=== PATIENT | female | born 2000 | race Caucasian/White ===

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

== ENCOUNTER 2019-01-11 09:26 | Emergency (ER) | payer MEDICAID ==
[2019-01-11 09:40] VITALS: BP 105/73
--- NOTE | 2019-01-11 10:06 | UC ---
Throat Pain/Nasal Royer HPI - HPI Summary HPI Summary: 18 -year-old female with a sore throat over the past 2 days. She also states she has a small rash to the inner canthus of her right eye which in the past has been herpes and she requests a prescription for that. - History of Current Complaint Chief Complaint: UCGeneralIllness Stated Complaint: SORE THROAT Time Seen by Provider: 01/11/19 10:05 Hx Obtained From: Patient Hx Last Menstrual Period: now ?: No Onset/Duration: Gradual Onset Severity: Mild Pain Intensity: 8 Cough: None Associated Signs & Symptoms: Positive: Negative Related History: Seasonal Allergies - Epiglottits Risk Factors Epiglottis Risk Factors: Negative - Allergies/Home Medications Allergies/Adverse Reactions: Allergies Allergy/AdvReac Type Severity Reaction Status Date / Time amoxicillin Allergy Hives Verified 01/11/19 09:40 clavulanic acid Allergy Hives Verified 01/11/19 09:40 Penicillins Allergy Hives Verified 01/11/19 09:40 PMH/Surg Hx/FS Hx/Imm Hx Previously Healthy: Yes - Surgical History Surgical History: Yes Surgery Procedure, Year, and Place: pyloric stenosis surgery as an , appendectomy - Family History Known Family History: Positive: Hypertension Negative: Cardiac Disease, Diabetes - Social History Alcohol Use: None Substance Use Type: None Smoking Status (MU): Heavy Every Day Tobacco Smoker Type: Cigarettes Amount Used/How Often: 1 PPD Have You Smoked in the Last Year: Yes - stopped in Household Exposure Type: Cigarettes - Immunization History Most Recent Influenza Vaccination: Declined Most Recent Pneumonia Vaccination: none Vaccination Up to Date: Yes Review of Systems All Other Systems Reviewed And Are Negative: Yes Skin: Positive: Rash - Small red rash at the inner canthus of the right eye which patient states is usually herpes simplex. Eyes: Positive: Other - Itchy eyes over the past few days. ENT: Positive: Sore Throat - Pt defines sore throat as being scratchy, Nasal Discharge - Occasional runny nose. Is Patient Immunocompromised?: No Physical Exam Triage Information Reviewed: Yes Appearance: Well-Appearing, No Pain Distress, Well-Nourished Vital Signs: Initial Vital Signs Temp 98.4 F 01/11/19 09:35 Pulse 91 01/11/19 09:35 Resp 18 01/11/19 09:35 BP 105/73 01/11/19 09:35 Pulse Ox 98 01/11/19 09:35 Vital Signs Reviewed: Yes Eye Exam: Normal ENT: Positive: Pharyngeal erythema - Mild erythema posterior pharynx and tonsils. Neck: Positive: Supple, Nontender, No Lymphadenopathy Respiratory: Positive: Lungs clear, Normal breath sounds, No respiratory distress, No accessory muscle use Cardiovascular: Positive: RRR, No Murmur, Pulses Normal, Brisk Capillary Refill Musculoskeletal Exam: Normal Neurological Exam: Normal Psychological Exam: Normal Skin: Positive: Rashes - Patient has a small red mildly elevated rash to the inner canthus of her right eye. There are no visible herpetic lesions at this time. It measures approximately 3 mm x 2 mm. Throat Pain/Nasal Course/Dx - Course Course Of Treatment: Patient has been comfortable here. She is experiencing more an allergic response I believe since the strep test was negative. I am also going to treat her for the rash at the inner canthus of her eye. She states in the past she has had a culture done and it was positive for herpes. Follow-up with her primary care provider as needed. - Differential Dx/Diagnosis Provider Diagnosis: Pharyngitis, Rash and nonspecific skin eruption Discharge - Sign-Out/Discharge Documenting (check all that apply): Patient Departure All imaging exams completed and their final reports reviewed: No Studies - Discharge Plan Condition: Fair Disposition: HOME Prescriptions: ValACYclovir (*) [Valtrex 1 GM(*)] 1 gm PO DAILY 5 Days #5 tab Patient Education Materials: Pharyngitis (ED), Oral Herpes Simplex Virus Infections (ED) Referrals: No Primary Care Phys,NOPCP [Primary Care Provider] - Care [facility] [Outside] - Billing Disposition and Condition Condition: FAIR Disposition: Home
== END 2019-01-11 10:51 | disposition home or self-care (01) ==
LOC: UCEAST 09:26
DX: J02.9 Acute pharyngitis, unspecified (principal); R21 Rash and other nonspecific skin eruption; Z88.1 Allergy status to other antibiotic agents; Z88.0 Allergy status to penicillin; F17.210 Nicotine dependence, cigarettes, uncomplicated
CPT/HCPCS: 87651; 99212; G0463

== ENCOUNTER 2019-03-07 16:39 | Emergency (ER) | payer MEDICAID ==
[2019-03-07 16:50] VITALS: BP 116/57
--- NOTE | 2019-03-07 17:10 | UC ---
Abdominal Pain Female HPI - HPI Summary HPI Summary: 18-year-old female comes in with a chief complaint of she can't find her IUD strings. One month ago the patient had an IUD placed RACHNA. She had for 5 days of vaginal spotting and then she started bleeding more heavily. Last 3 days she reports using a tampon every few hours 3-4 hours. She does feel little bit lightheaded. She is continuing to have suprapubic cramping. No fevers or chills no concern of STI feels well otherwise. - History of Current Complaint Chief Complaint: UCGU Stated Complaint: ABDOMINAL COMPLAINT Time Seen by Provider: 03/07/19 16:51 Hx Last Menstrual Period: now Pain Intensity: 5 Allergies/Adverse Reactions: Allergies Allergy/AdvReac Type Severity Reaction Status Date / Time amoxicillin Allergy Hives Verified 03/07/19 16:51 clavulanic acid Allergy Hives Verified 03/07/19 16:51 Penicillins Allergy Hives Verified 03/07/19 16:51 PMH/Surg Hx/FS Hx/Imm Hx Previously Healthy: Yes - Surgical History Surgical History: Yes Surgery Procedure, Year, and Place: pyloric stenosis surgery as an , appendectomy - Family History Known Family History: Positive: Hypertension Negative: Cardiac Disease, Diabetes - Social History Alcohol Use: None Substance Use Type: Marijuana Substance Use Comment - Amount & Last Used: daily Smoking Status (MU): Heavy Every Day Tobacco Smoker Type: Cigarettes Amount Used/How Often: 1 PPD Have You Smoked in the Last Year: Yes - stopped in Household Exposure Type: Cigarettes - Immunization History Most Recent Influenza Vaccination: Declined Most Recent Pneumonia Vaccination: none Vaccination Up to Date: Yes Review of Systems All Other Systems Reviewed And Are Negative: Yes Constitutional: Positive: Other - LIGHTHEADED Skin: Positive: Negative Eyes: Positive: Negative ENT: Positive: Negative Respiratory: Positive: Negative Cardiovascular: Positive: Negative Gastrointestinal: Positive: Abdominal Pain Genitourinary: Positive: Other - SEE HPI. Negative: Dysuria Motor: Positive: Negative Neurovascular: Positive: Negative Musculoskeletal: Positive: Negative Neurological: Positive: Negative Psychological: Positive: Negative Is Patient Immunocompromised?: No Physical Exam Triage Information Reviewed: Yes Appearance: Well-Appearing, No Pain Distress, Well-Nourished Vital Signs: Initial Vital Signs Temp 99.8 F 03/07/19 16:45 Pulse 93 03/07/19 16:45 Resp 16 03/07/19 16:45 BP 116/57 03/07/19 16:45 Pulse Ox 97 03/07/19 16:45 Vital Signs Reviewed: Yes Eye Exam: Normal Eyes: Positive: Conjunctiva Clear ENT: Positive: Other - ORAL MUCOSA MOIST Neck: Positive: Supple Respiratory: Positive: Lungs clear, Normal breath sounds, No respiratory distress Cardiovascular: Positive: RRR Abdomen Description: Positive: Soft, Other: - MILD TENDERNESS TO PALPATION LOWER ABDOMEN. Negative: CVA Tenderness (R), CVA Tenderness (L) Musculoskeletal Exam: Normal Musculoskeletal: Positive: Strength Intact, ROM Intact Neurological Exam: Normal Neurological: Positive: Alert, Muscle Tone Normal Psychological Exam: Normal Psychological: Positive: Normal Response To Family, Age Appropriate Behavior Skin Exam: Normal Abd Pain Female Course/Dx - Course Course Of Treatment: Patient Name: VIDYA MARQUEZ Medical Record#: [id number] Ordering Physician: Andrea Sandoval MD Acct.#: [id number] : 2000 Age: 18 Sex: F Location: [facility] Exam Date: 03/07/191702 ADM Status: REG ER Order Information: US TRANSVAGINAL Accession Number: [id number] CPT: 48918 INDICATION: Vaginal bleeding and cramping x1 month. COMPARISON: None. TECHNIQUE: Real-time transabdominal and transvaginal ultrasound examination of the female pelvis including grayscale and Doppler color flow imaging. FINDINGS: Uterus: The uterus is normal in size and echogenicity measuring 8.9 x 4.5 x 4.8 cm. The endometrial stripe is smooth and uniform measuring 5 mm in thickness. The intrauterine device appears to be appropriately positioned at the fundal height endometrium. Ovaries: The right and left ovary measure 5.2 x 2.7 x 3.5 cm and 2.9 x 2.0 x 1.6 cm, respectively. Normal arterial and venous waveforms are identified. Within the right ovary there is an anechoic and avascular structure measuring 3.7 x 3.0 x 3.3 cm consistent with a dominant follicle. There is no free fluid in the cul-de-sac. IMPRESSION: 1. Normal and age-appropriate pelvic ultrasound. 2. The intrauterine device appears to be appropriately positioned at the fundal height endometrium. <Electronically signed by Max Beebe MD in OV> 03/07/19 1850 I discussed the ultrasound and urine results with the patient. IUD appears in place there is no portion there is a simple ovarian cyst on the right. is negative. Plan right now so the patient follow[facility] with [facility] get reevaluated sooner if worse or any questions or concerns. - Differential Dx/Diagnosis Provider Diagnosis: Vaginal bleeding problems, Pelvic pain, Ovarian cyst Discharge - Sign-Out/Discharge Documenting (check all that apply): Patient Departure All imaging exams completed and their final reports reviewed: Yes - Discharge Plan Condition: Stable Disposition: HOME Patient Education Materials: Dysfunctional Uterine Bleeding (ED), Ovarian Cyst (ED), Intrauterine Device (DC), Pelvic Pain in Women (ED) [facility] Additional Instructions: FOLLOW UP WITH [facility]. The will ultrasound showed the IUD in place. No sign of ovarian torsion. And a right ovarian simple cyst measuring 3.7 x 3 x 3.3 cm. GET RECHECKED SOONER IF YOUR CONDITION WORSENS; PAIN, FEVER, YOU FEEL ILL, YOU FEEL LIKE PASSING OUT OR ANY QUESTIONS OR CONCERNS. - Billing Disposition and Condition Condition: STABLE Disposition: Home
== END 2019-03-07 18:43 | disposition home or self-care (01) ==
LOC: UCEAST 16:39
DX: N92.6 Irregular menstruation, unspecified (principal); R10.2 Pelvic and perineal pain; N83.201 Unspecified ovarian cyst, right side; F17.210 Nicotine dependence, cigarettes, uncomplicated; Z88.0 Allergy status to penicillin; Z97.5 Presence of (intrauterine) contraceptive device
CPT/HCPCS: 76830; 81003; 84702; 87086; 99211; G0463

== ENCOUNTER 2019-04-09 19:08 | Emergency (ER) | payer MEDICAID ==
[2019-04-09 20:22] LABS: Urine Appearance Cloudy; Urine Bacteria Absent (Absent); Urine Bilirubin Negative (Negative); Urine Blood 3+ (Negative); Urine Color Yellow; Urine Glucose Negative (Negative); Urine Ketones Negative (Negative); Urine Nitrite Negative (Negative); Urine Protein Negative (Negative); Urine Red Blood Cell 2+(6-10/hpf) (Absent); Urine Squamous Epithelial Cell Present (Absent); Urine Urobilinogen Negative (Negative); Urine White Blood Cell Trace(0-5/hpf) (Absent)
--- NOTE | 2019-04-09 20:27 | ED ---
Psychiatric Complaint - HPI Summary HPI Summary: This patient is a 18 year old F presenting to [facility] accompanied by her grandmother with a chief complaint of suicidal ideation. Patient states that she has been dealing with this on and off for her whole life. She has been taking her medication for suicidal ideation on and off because she feels she does not need them to feel better. Symptoms aggravated by nothing. Symptoms alleviated by nothing. Patient reports being depressed. Patient denies plan at this time. She notes she lives with her mother. - History Of Current Complaint Chief Complaint: EDSuicidal Time Seen by Provider: 04/09/19 19:45 Hx Obtained From: Patient Hx Last Menstrual Period: now Onset/Duration: Other - has been dealing with suicidal ideation on and off for her whole life Character: Depressed Aggravating Factor(s): Nothing Alleviating Factor(s): Nothing Has Suicidal: Reports: Thoughts - Allergies/Home Medications Allergies/Adverse Reactions: Allergies Allergy/AdvReac Type Severity Reaction Status Date / Time amoxicillin Allergy Hives Verified 04/09/19 19:11 clavulanic acid Allergy Hives Verified 04/09/19 19:11 Penicillins Allergy Hives Verified 04/09/19 19:11 Home Medications: Home Medications NK [No Home Medications Reported] 04/09/19 [History Confirmed 04/09/19] PMH/Surg Hx/FS Hx/Imm Hx Previously Healthy: No Endocrine/Hematology History: Denies: Hx Diabetes, Hx Thyroid Disease Cardiovascular History: Denies: Hx Hypertension Respiratory History: Denies: Hx Asthma, Hx Chronic Obstructive Pulmonary Disease (COPD) GI History: 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 Denies: Hx Ulcer History: Denies: Hx Renal Disease Psychiatric History: Reports: Hx Anxiety - on lexapro, Hx Depression, Hx Community Mental Health Tx Denies: Hx Attention Deficit Hyperactivity Disorder, Hx Eating Disorder, Hx Panic Disorder, Hx Post Traumatic Stress Disorder, Hx Inpatient Treatment, Hx Schizophrenia, Hx Bipolar Disorder, Hx Suicide Attempt, Hx of Violent Episodes Against Others, Hx Substance Abuse, Other Psychiatric Issues/Disorders - Surgical History Surgical History: Yes Surgery Procedure, Year, and Place: pyloric stenosis surgery as an infant, appendectomy Infectious Disease History: No Infectious Disease History: Denies: Hx Clostridium Difficile, Hx Hepatitis, Hx Human Immunodeficiency Virus (HIV), Hx of Known/Suspected MRSA, Hx Shingles, Hx Tuberculosis, Hx Known/ Suspected VRE, Hx Known/Suspected VRSA, History Other Infectious Disease, Traveled Outside the [place] in Last 30 Days - Family History Known Family History: Positive: Hypertension Negative: Cardiac Disease, Diabetes - Social History Alcohol Use: None Substance Use Type: Reports: Marijuana Substance Use Comment - Amount & Last Used: daily Smoking Status (MU): Heavy Every Day Tobacco Smoker Type: Cigarettes Amount Used/How Often: 1 PPD Have You Smoked in the Last Year: Yes - stopped in Review of Systems Negative: Fever Psychological: Other - positive - suicidal ideation. negative - suicidal plan at this time Positive: Depressed All Other Systems Reviewed And Are Negative: Yes Physical Exam - Summary Physical Exam Summary: VITAL SIGNS: Reviewed. GENERAL: depressed mood, patient is a well-developed and nourished FEMALE who is lying comfortable in the stretcher. Patient is not in any acute respiratory distress. HEAD AND FACE: No signs of trauma. No ecchymosis, hematomas or skull depressions. No sinus tenderness. EYES: PERRLA, EOMI x 2, No injected conjunctiva, no nystagmus. EARS: Hearing grossly intact. Ear canals and tympanic membranes are within normal limits. MOUTH: Oropharynx within normal limits. NECK: Supple, trachea is midline, no adenopathy, no JVD, no carotid bruit, no c- spine tenderness, neck with full ROM CHEST: Symmetric, no tenderness at palpation LUNGS: Clear to auscultation bilaterally. No wheezing or crackles. CVS: Regular rate and rhythm, S1 and S2 present, no murmurs or gallops appreciated. ABDOMEN: Soft, non-tender. No signs of distention. No rebound no guarding, and no masses palpated. Bowel sounds are normal. EXTREMITIES: FROM in all major joints, no edema, no cyanosis or clubbing. NEURO: Alert and oriented x 3. No acute neurological deficits. Speech is normal and follows commands. SKIN: Dry and warm Triage Information Reviewed: Yes Vital Signs On Initial Exam: Initial Vitals Temp Pulse Resp BP Pulse Ox 99.3 F 96 18 131/92 97 04/09/19 19:10 04/09/19 19:10 04/09/19 19:10 04/09/19 19:10 04/09/19 19:10 Vital Signs Reviewed: Yes Diagnostics - Vital Signs Vital Signs Temp Pulse Resp BP Pulse Ox 04/09/19 19:10 99.3 F 96 18 131/92 97 - Laboratory Result Diagrams: 04/09/19 20:37 04/09/19 20:37 Lab Statement: Any lab studies that have been ordered have been reviewed, and results considered in the medical decision making process. Course/Dx - Course Course Of Treatment: This patient is a 18 year old F presenting to [facility] accompanied by her grandmother with a chief complaint of suicidal ideation. Patient states that she has been dealing with this on and off for her whole life. She has been taking her medication for suicidal ideation on and off because she feels she does not need them to feel better. Symptoms aggravated by nothing. Symptoms alleviated by nothing. Patient reports being depressed. Patient denies plan at this time. She notes she lives with her mother. Physical exam findings show pt has depressed mood. Lab results show Urine blood 3+ A, urine RBC 2+ A, Ir squamous epith cells present A, U cannabinoids screen presumptive positive A. During the ED course, the pt was given a mental health evaluation. At 2303, [facility] notifies Dr. Poon that Dr. Lowery, psychiatry, says pt will be discharged and will follow up with an outpatient clinic. Final diagnosis is mood disorder. - Differential Dx/Clinical Impression Provider Diagnosis: Mood disorder - Physician Notifications Discussed Care Of Patient With: Gwyn Lowery Time Discussed With Above Provider: 23:03 Instructed by Provider To: Other - [facility] notifies Dr. Poon that Dr. Lowery, psychiatry, says pt can be discharged and will follow up with an outpatient clinic. Discharge - Sign-Out/Discharge Patient Received Moderate/Deep Sedation with Procedure: No - Discharge Plan Condition: Stable Disposition: HOME Patient Education Materials: Mood Disorders (ED), Help Prevent Suicide (ED) Referrals: No Primary Care Phys,NOPCP [Primary Care Provider] - - Billing Disposition and Condition Condition: STABLE Disposition: Home - Attestation Statements Document Initiated by Alejandroibe: Yes Documenting Scribe: Amor White Provider For Whom Daniella is Documenting (Include Credential): Dr. Lindy Poon MD Scribe Attestation: Amor Recio scribed for Dr. Lindy Poon MD on 04/10/19 at 0613. Scribe Documentation Reviewed: Yes Provider Attestation: The documentation as recorded by the alejandroibflor, Amor White accurately reflects the service I personally performed and the decisions made by me, Dr. Lindy Poon MD Status of Daniella Document: Viewed
[2019-04-09 20:36] LABS: Urine Benzodiazepine Screen None Detected (None Detect); Urine Opiates Screen None Detected (None Detect)
[2019-04-09 20:51] LABS: ABS Eosinophils 0.3 10^3/ul (0-0.6); ABS Lymphocytes 1.8 10^3/ul (1.0-4.8); ABS Monocytes 0.5 10^3/ul (0-0.8); ABS Neutrophils 3.3 10^3/ul (1.5-7.7); Eosinophil % 5.8 %; Hematocrit 36 % (35-47); Hemoglobin 12.3 g/dL (12.0-16.0); Lymphocyte % 29.8 %; Mean Corpuscular HGB Conc 34 g/dL (31-36); Mean Corpuscular Hemoglobin 30 pg (27-31); Mean Corpuscular Volume 89 fL (80-97); Mean Platelet Volume 8.4 fL (7.4-10.4); Platelet Count 211 10^3/uL (150-450); Red Blood Count 4.08 10^6 /uL (3.70-4.87); Red Cell Distribution Width 15 % (10-15); White Blood Count 5.9 10^3/uL (3.5-10.8)
[2019-04-09 21:00] LABS: ALT 10 U/L (7-52); AST 12 U/L (13-39); Albumin 4.3 g/dL (3.2-5.2); Albumin/Globulin Ratio 1.7 (1-3); Alkaline Phosphatase 43 U/L (34-104); Anion Gap 7 mmol/L (2-11); BUN/Creatinine Ratio 18.1 (8-20); Blood Urea Nitrogen 15 mg/dL (6-24); CO2 Carbon Dioxide 22 mmol/L (22-32); Calcium 9.3 mg/dL (8.6-10.3); Chloride 111 mmol/L (101-111); EGFR African American 107.2 (>60); EGFR Non-African American 88.6 (>60); Globulin 2.6 g/dL (2-4); Glucose 91 mg/dL (70-100); Potassium 3.7 mmol/L (3.5-5.0); Sodium 140 mmol/L (135-145); Total Protein 6.9 g/dL (6.4-8.9)
[2019-04-09 21:05] LABS: HCG Pregnancy < 0.60 mIU/mL
[2019-04-09 21:19] LABS: Acetaminophen < 15 mcg/mL; Alcohol < 10 mg/dL (<10); Salicylate < 2.50 mg/dL (<30)
[2019-04-09 21:33] LABS: TSH (Thyroid Stimulating Horm) 0.38 mcIU/mL (0.34-5.60)
[2019-04-09 22:57] VITALS: BP 117/67
== END 2019-04-09 21:57 | disposition home or self-care (01) ==
LOC: ED 19:08
DX: F41.9 Anxiety disorder, unspecified (principal); F39 Unspecified mood [affective] disorder; F32.9 Major depressive disorder, single episode, unspecified; Z88.1 Allergy status to other antibiotic agents; Z88.0 Allergy status to penicillin; Z79.899 Other long term (current) drug therapy
CPT/HCPCS: 36415; 80053; 80307; 80320; 80329; 81003; 81015; 84443; 84702; 85025; 87086; 99285; G0480

== ENCOUNTER 2019-04-15 21:19 | Emergency (ER) | payer SELFPAY ==
[2019-04-15 21:43] VITALS: BP 118/82
--- NOTE | 2019-04-15 21:52 | UC ---
Throat Pain/Nasal Royer HPI - HPI Summary HPI Summary: Patient is a 18-year-old female who presents to the urgent care with chief complaint of having sore throat, fatigue, headache for the last 2 days. The patient denies any trismus, any swelling of the tongue or lips. Patient has painful swallowing but no difficulty swallowing. Patient also reporting that she has a right lower quadrant pain. She said a month ago she was diagnosed with a ovarian cyst however in the last 2 days the patient is having pain in the right lower quadrant pain. Patient has nausea without vomiting. She denies any fever or chills. She has no constipation, or diarrhea. Her last menstrual cycle was one week ago. - History of Current Complaint Chief Complaint: UCGeneralIllness Stated Complaint: FEVER SORE THROAT, ABD PAIN, HEADPAIN Time Seen by Provider: 04/15/19 21:25 Hx Last Menstrual Period: 1 WEEK AGO ?: No Onset/Duration: Gradual Onset Pain Intensity: 5 - Allergies/Home Medications Allergies/Adverse Reactions: Allergies Allergy/AdvReac Type Severity Reaction Status Date / Time amoxicillin Allergy Hives Verified 04/09/19 19:11 clavulanic acid Allergy Hives Verified 04/09/19 19:11 Penicillins Allergy Hives Verified 04/09/19 19:11 PMH/Surg Hx/FS Hx/Imm Hx Previously Healthy: Yes - Surgical History Surgical History: Yes Surgery Procedure, Year, and Place: pyloric stenosis surgery as an infant, appendectomy - Family History Known Family History: Positive: Hypertension Negative: Cardiac Disease, Diabetes - Social History Alcohol Use: None Substance Use Type: Marijuana Substance Use Comment - Amount & Last Used: daily Smoking Status (MU): Heavy Every Day Tobacco Smoker Type: Cigarettes Amount Used/How Often: 1 PPD Have You Smoked in the Last Year: Yes - stopped in Household Exposure Type: Cigarettes - Immunization History Most Recent Influenza Vaccination: Declined Most Recent Pneumonia Vaccination: none Vaccination Up to Date: Yes Review of Systems All Other Systems Reviewed And Are Negative: Yes Constitutional: Positive: Negative Skin: Positive: Negative Eyes: Positive: Negative ENT: Positive: Sore Throat Respiratory: Positive: Negative Cardiovascular: Positive: Negative Gastrointestinal: Positive: Other - Right lower quadrant pain Genitourinary: Positive: Negative Motor: Positive: Negative Neurovascular: Positive: Negative Musculoskeletal: Positive: Negative Neurological: Positive: Negative Psychological: Positive: Negative Is Patient Immunocompromised?: No Physical Exam - Summary Physical Exam Summary: VITAL SIGNS: Reviewed. GENERAL: Patient is a well developed and nourished female who is lying comfortably in the examining table. Patient is not in any acute respiratory distress. HEAD AND FACE: Normocephalic and atraumatic. EYES: PERRLA, EOMI x 2, No injected conjunctiva. EARS: Hearing grossly intact. Ear canals and tympanic membranes are WNL. MOUTH: Positive pharyngeal erythema without any exudate.. NECK: Supple, trachea is midline, no adenopathy, no JVD. CHEST: Symmetric, no tenderness at palpation LUNGS: Clear to auscultation bilaterally. No wheezing or crackles. CVS: RRR, S1 and S2 present, no murmurs or gallops appreciated. ABDOMEN: Soft, right lower quadrant tenderness. No signs of distention. Positive bowel sounds. No rebound no guarding, and no masses palpated. No abdominal bruits or pulsations. EXTREMITIES: FROM in all major joints, no edema, no cyanosis or clubbing. NEURO: Alert and oriented x 3. No acute neurological deficits. Speech is normal. SKIN: Dry and warm Triage Information Reviewed: Yes Appearance: Well-Appearing Vital Signs: Initial Vital Signs Temp 99.4 F 04/15/19 21:39 Pulse 99 04/15/19 21:39 Resp 18 04/15/19 21:39 BP 118/82 04/15/19 21:39 Pulse Ox 98 04/15/19 21:39 Vital Signs Reviewed: Yes Throat Pain/Nasal Course/Dx - Course Course Of Treatment: Rapid strep is negative. Patient had an appendectomy couple years ago therefore likely the pain is secondary to an ovarian cyst. Patient will only reports the pain when she does so ambulation, pain right now is only 1 out of 10, and when he is at rest the pain is not existent. Therefore the patient will be discharged home with follow -up with primary care physician. She was given instructions to return to the urgent care or emergency room if the symptoms worsen. She understands and agrees. - Differential Dx/Diagnosis Provider Diagnosis: Right lower quadrant pain, Viral pharyngitis Discharge - Sign-Out/Discharge Documenting (check all that apply): Patient Departure All imaging exams completed and their final reports reviewed: No Studies - Discharge Plan Condition: Stable Disposition: HOME Patient Education Materials: Pharyngitis (ED) Referrals: No Primary Care Phys,NOPCP [Primary Care Provider] - [facility] [Outside] Additional Instructions: Take medications as instructed Increase your fluid intake F/U with PCP in the next 2-3 days Return to the UC if symptoms worsen - Billing Disposition and Condition Condition: STABLE Disposition: Home
[2019-04-15] MEDS ORDERED: Ibuprofen TAB* 600 MG PO ONE (22:05)
== END 2019-04-15 22:10 | disposition home or self-care (01) ==
LOC: UCEAST 21:19
DX: J02.8 Acute pharyngitis due to other specified organisms (principal); R10.31 Right lower quadrant pain; F17.210 Nicotine dependence, cigarettes, uncomplicated; Z88.0 Allergy status to penicillin
CPT/HCPCS: 87651; 99212; A9270-GY; G0463

== ENCOUNTER 2019-07-04 11:14 | Emergency (ER) | payer OTHER ==
[2019-07-04 11:23] VITALS: BP 120/65
[2019-07-04] MEDS ORDERED: Fluorescein Sodium TOPICAL* 1 MG TEST STRIP OPHTHALMIC ONE (11:37)
[2019-07-04] MEDS ORDERED: Tetracaine 0.5% OPTH.SOL 4 ML* 1 DROP BTL RIGHT EYE ONE (11:37)
--- NOTE | 2019-07-04 11:59 | UC ---
Eye Complaint HPI - HPI Summary HPI Summary: 19-year-old female comes in with a chief complaint of bilateral eye drainage. Started couple days ago her left eye is improved but her right eye is gotten drainage it's irritated the conjunctiva is red and it does itch. Patient does have contacts that she's taken them out since the irritation started. Light does bother her eyes. She's also has some chest congestion. She's had some chills at home. She is a smoker. Minimal rhinorrhea or sore throat. No known trauma to the eyes. - History of Current Complaint Chief Complaint: UCEye Stated Complaint: EYE COMPLAINT Time Seen by Provider: 07/04/19 11:31 Hx Last Menstrual Period: 07/03/19 Pain Intensity: 10 - Allergies/Home Medications Allergies/Adverse Reactions: Allergies Allergy/AdvReac Type Severity Reaction Status Date / Time amoxicillin Allergy Hives Verified 07/04/19 11:23 clavulanic acid Allergy Hives Verified 07/04/19 11:23 Penicillins Allergy Hives Verified 07/04/19 11:23 PMH/Surg Hx/FS Hx/Imm Hx Previously Healthy: Yes - Surgical History Surgical History: Yes Surgery Procedure, Year, and Place: pyloric stenosis surgery as an , appendectomy - Family History Known Family History: Positive: Hypertension Negative: Cardiac Disease, Diabetes - Social History Alcohol Use: Rare Substance Use Type: None Substance Use Comment - Amount & Last Used: daily Smoking Status (MU): Light Every Day Tobacco Smoker Type: Cigarettes Amount Used/How Often: 1 PPD Have You Smoked in the Last Year: Yes - stopped in Household Exposure Type: Cigarettes - Immunization History Most Recent Influenza Vaccination: Declined Most Recent Pneumonia Vaccination: none Vaccination Up to Date: Yes Review of Systems All Other Systems Reviewed And Are Negative: Yes Constitutional: Positive: Chills, Other - SEE HPI Skin: Positive: Negative Eyes: Positive: Drainage, Eye Redness, Photophobia ENT: Positive: Nasal Discharge Respiratory: Positive: Cough, Other - SEE HPI Cardiovascular: Positive: Negative Gastrointestinal: Positive: Negative Motor: Positive: Negative Neurovascular: Positive: Negative Musculoskeletal: Positive: Negative Neurological: Positive: Negative Psychological: Positive: Negative Is Patient Immunocompromised?: No Physical Exam Triage Information Reviewed: Yes Appearance: Well-Appearing, No Pain Distress, Well-Nourished Vital Signs: Initial Vital Signs Temp 99.0 F 07/04/19 11:19 Pulse 99 07/04/19 11:19 Resp 18 07/04/19 11:19 BP 120/65 07/04/19 11:19 Pulse Ox 98 07/04/19 11:19 Vital Signs Reviewed: Yes Eyes: Positive: Conjunctiva Inflamed - RT, Discharge - RT, Other: - PERRLA EOMI. No uptake on fluorescein stain. No foreign body appreciated. No stye appreciated. Patient does have some photophobia that decreased after tetracaine. ENT: Positive: Nasal congestion Neck: Positive: Supple Respiratory: Positive: Lungs clear, Normal breath sounds, No respiratory distress Cardiovascular: Positive: RRR Musculoskeletal: Positive: Strength Intact, ROM Intact Neurological: Positive: Alert Psychological: Positive: Age Appropriate Behavior Skin Exam: Normal Eye Complaint Course/Dx - Differential Dx/Diagnosis Provider Diagnosis: Conjunctivitis Discharge ED - Sign-Out/Discharge Documenting (check all that apply): Patient Departure All imaging exams completed and their final reports reviewed: No Studies - Discharge Plan Condition: Stable Disposition: HOME Prescriptions: Tobramycin 0.3% OPHTH.TERRY* 1 drop RIGHT EYE Q4H #1 btl Patient Education Materials: Conjunctivitis (ED) Forms: *Work Release Referrals: [facility] [Provider Group] Additional Instructions: FOLLOW UP WITH OPHTHALMOLOGY IF NOT COMPLETELY IMPROVED. GET RECHECKED SOONER IF YOUR CONDITION WORSENS OR ANY QUESTIONS OR CONCERNS. - Billing Disposition and Condition Condition: STABLE Disposition: Home
== END 2019-07-04 12:00 | disposition home or self-care (01) ==
LOC: UCEAST 11:14
DX: H10.9 Unspecified conjunctivitis (principal); F17.210 Nicotine dependence, cigarettes, uncomplicated; Z88.0 Allergy status to penicillin
CPT/HCPCS: 99212; A9270-GY; G0463

== ENCOUNTER 2019-08-30 21:52 | Emergency (ER) | payer OTHER ==
[2019-08-30 22:10] VITALS: BP 113/68
--- NOTE | 2019-08-30 22:20 | UC ---
HPI Febrile Illness - HPI Summary HPI Summary: Ms Mcnair was in her normal state of health until about 8 PM this evening when she began to have chest pain and abdominal pain. It was accompanied by some nausea. She states her symptoms have resolved but now she has some tightness and pain in the left side of her back. She is complaining of chills. She is not short of breath. - History of Current Complaint Time Seen by Provider: 08/30/19 21:57 Hx Obtained From: Patient, Family/Marine Surveyor Hx Last Menstrual Period: beginning july Onset/Duration: Started Hours Ago - Two Timing: Constant Initial Severity: Moderate Current Severity: Moderate Pain Intensity: 0 Aggravating Factors: Nothing Associated Signs and Symptoms: Negative - Allergy/Home Medications Allergies/Adverse Reactions: Allergies Allergy/AdvReac Type Severity Reaction Status Date / Time amoxicillin Allergy Hives Verified 07/04/19 11:23 clavulanic acid Allergy Hives Verified 07/04/19 11:23 Penicillins Allergy Hives Verified 07/04/19 11:23 PMH/Surg Hx/FS Hx/Imm Hx Previously Healthy: Yes - Surgical History Surgical History: Yes Surgery Procedure, Year, and Place: pyloric stenosis surgery as an , appendectomy - Family History Known Family History: Positive: Hypertension Negative: Cardiac Disease, Diabetes - Social History Alcohol Use: Rare Substance Use Type: None Substance Use Comment - Amount & Last Used: daily Smoking Status (MU): Light Every Day Tobacco Smoker Type: Cigarettes Amount Used/How Often: 1 PPD Have You Smoked in the Last Year: Yes - stopped in Household Exposure Type: Cigarettes - Immunization History Most Recent Influenza Vaccination: Declined Most Recent Pneumonia Vaccination: none Vaccination Up to Date: Yes Review of Systems All Other Systems Reviewed And Are Negative: Yes Constitutional: Positive: Fever, Chills Skin: Positive: Negative Eyes: Positive: Negative ENT: Positive: Negative Respiratory: Positive: Negative Cardiovascular: Positive: Chest Pain - Briefly Gastrointestinal: Positive: Abdominal Pain - Briefly, Nausea Genitourinary: Positive: Negative Neurovascular: Positive: Negative Musculoskeletal: Positive: Negative Neurological: Positive: Negative Physical Exam - Summary Physical Exam Summary: She is nontoxic in appearance with stable vital signs. Vital Signs: Initial Vital Signs Temp 101.1 F 08/30/19 22:07 Pulse 138 08/30/19 22:07 Resp 18 08/30/19 22:07 BP 113/68 08/30/19 22:07 Pulse Ox 100 08/30/19 22:07 Diagnostics - Radiology CXR Radiology Interpretation Completed By: ED Physician Summary of Radiographic Findings: No acute process Course/Dx - Course Course Of Treatment: Source of her fever is uncertain. It is likely viral. She does not have pneumonia or influenza. Her well's criteria is 1.5 and she was tachycardic when she arrived but has no other reference to a risk factor for PE. I recommended symptomatic treatment and follow-up if not improving. - Diagnoses Provider Diagnosis: Fever Discharge ED - Sign-Out/Discharge Documenting (check all that apply): Patient Departure All imaging exams completed and their final reports reviewed: Yes - Discharge Plan Condition: Stable Disposition: HOME Patient Education Materials: Fever in Adults (ED) Referrals: No Primary Care Phys,NOPCP [Primary Care Provider] - Care [facility] [Outside] - Billing Disposition and Condition Condition: STABLE Disposition: Home
[2019-08-30] MEDS ORDERED: Acetaminophen TAB* 325 MG PO ONE (22:24)
[2019-08-30 22:53] LABS: Influenza A Molecular NEGATIVE (Negative); Influenza B Molecular NEGATIVE (Negative)
== END 2019-08-30 23:03 | disposition home or self-care (01) ==
LOC: UCEAST 21:52
DX: R50.9 Fever, unspecified (principal); R07.9 Chest pain, unspecified; R10.9 Unspecified abdominal pain; R11.0 Nausea; M54.9 Dorsalgia, unspecified; F17.210 Nicotine dependence, cigarettes, uncomplicated; Z88.0 Allergy status to penicillin
CPT/HCPCS: 71046; 81003; 84702; 87086; 99212; A9270-GY; G0463

== ENCOUNTER 2019-10-02 16:03 | Emergency (ER) | payer OTHER ==
--- OUTSIDE RECORDS SUMMARY | 2019-10-02 16:11 | XMS REPORT | Continuity of Care Document ---
:2000 External Reference #:[id number] Author Name Erma Birmingham MD Address [address] [place] [address] Care Team Providers Name Role Phone HCP given Care Team Information Osteopathic Resident Unavailable Problems Description No Information Available Social History Type Date Description Comments Sex Unknown Tobacco Use Start: Unknown Heavy tobacco smoker (more than 10 cigarettes/day) Tobacco Use Start: Unknown Heavy tobacco smoker (more than 10 1 ppd cigarettes/day) Smoking Status Reviewed: 09/21/19 Heavy tobacco smoker (more than 10 1 ppd cigarettes/day) Tobacco Use Start: Unknown Patient is a current smoker, smokes every day Allergies, Adverse Reactions, Alerts Active Allergies Reaction Severity Comments Date Penicillin 09/12/2019 Augmentin 09/12/2019 Medications Active Medications SIG Qnty Indications Ordering Provider Date Ferrous Gluconate 1 by mouth 30tabs D64.9 Erma Birmingham, 09/19/2019 every day 324(38Fe) mg Tablets History Medications No Active Medications Unknown 09/12/2019 - 09/19/2019 Medications Administered in Office Medication SIG Qnty Indications Ordering Provider Date H1N1 Swine Flu Vaccine Unknown 08/25/2009 Injection Immunizations CPT Code Status Date Vaccine Lot # [id number] Given 01/14/2017 MMR Virus Immunization 32438 Given 03/17/2015 Menactra Menningitis Vaccine 89909 Given 03/17/2015 Hep A, Ped/Adolscent, 2 Dose 98048 Given 12/05/2014 flu mist - live influenza virus vaccine for intranasal use 83196 Given 08/29/2013 Influenza Virus Vaccine, Quadrivalent, Split, Preservative Free 62944 Given 08/29/2013 Hep A, Ped/Adolscent, 2 Dose 38261 Given 08/08/2012 flu mist - live influenza virus vaccine for intranasal use 43180 Given 08/04/2011 Flu, Split Virus 3Yrs 08520 Given 01/27/2011 Gardasil HPV vaccine 34829 Given 09/28/2010 Gardasil HPV vaccine 41512 Given 07/28/2010 Menactra Menningitis Vaccine 59815 Given 07/28/2010 Varicella (Chicken Pox) Immunization 73451 Given 07/28/2010 Flu, Split Virus 3Yrs 96068 Given 07/28/2010 Gardasil HPV vaccine 95142 Given 07/21/2009 Adacel or Boostrix, TDaP 50773 Given 07/21/2009 Flu, Split Virus 3Yrs 46947 Given 07/08/2008 Flu, Split Virus 3Yrs 38216 Given 08/15/2007 Flu, Split Virus 3Yrs 61744 Given 09/01/2006 Flu, Split Virus 3Yrs 36726 Given 11/05/2004 Flu, Split Virus 3Yrs 55124 Given 05/18/2004 Poliomyelitis Immunization 55264 Given 05/18/2004 MMR Virus Immunization 47071 Given 05/18/2004 Dtap Immunization (Tripedia) (Infanrix) 21600 Given 09/14/2000 DTaP Hib Immunization (Trihibit) 30801 Given 09/14/2000 Prevnar (Pneumococcal Conjugate) 91617 Given 06/27/2000 Prevnar (Pneumococcal Conjugate) 45008 Given 06/27/2000 MMR Virus Immunization 69532 Given 06/27/2000 Poliomyelitis Immunization 37943 Given 06/27/2000 Varicella (Chicken Pox) Immunization 58080 Given 02/22/2000 Hep B Immunization, Ped/Adolescent To 11 Yrs 82994 Given 1999 Dtap Immunization (Tripedia) (Infanrix) 63305 Given 1999 Hib - for booster (one dose) 40402 Given 1999 Hepb-Hib 32737 Given 1999 Poliomyelitis Immunization 25611 Given 1999 Dtap Immunization (Tripedia) (Infanrix) 83935 Given 1999 Hepb-Hib 51463 Given 1999 Poliomyelitis Immunization 71432 Given 1999 Dtap Immunization (Tripedia) (Infanrix) Vital Signs Date Vital Result Comment 09/19/2019 11:36am BP Systolic 106 mmHg BP Diastolic 62 mmHg Body Temperature 98.7 F 09/12/2019 1:13pm BP Systolic 102 mmHg BP Diastolic 60 mmHg Height 65.5 inches 5'5.50" Weight 130.50 lb BMI (Body Mass Index) 21.4 kg/m2 Results Test Acquired Facility Test Result H/L Range Note Date Laboratory 09/12/2019 In House negative test finding Test Urine HIV 1&2 p24 09/12/2019 [facility] HIV 4th Nonreactive Nonreactive Screen [phone] Generation CBC Auto Diff 09/12/2019 [facility] White Blood 4.3 10^3/uL Normal 3.5-10.8 [phone] Count Red Blood Count 4.01 10^6/uL Normal 3.70-4.87 Hemoglobin 12.5 g/dL Normal 12.0-16.0 Hematocrit 36 % Normal 35-47 Mean Corpuscular Volume 89 fL Normal 80-97 Mean Corpuscular Hemoglobin 31 pg Normal 27-31 Mean Corpuscular HGB Conc 35 g/dL Normal 31-36 Red Cell Distribution Width 15 % Normal 10-15 Platelet Count 221 10^3/uL Normal 150-450 Mean Platelet Volume 8.4 fL Normal 7.4-10.4 Abs Neutrophils 2.0 10^3/uL Normal 1.5-7.7 Abs Lymphocytes 1.7 10^3/uL Normal 1.0-4.8 Abs Monocytes 0.4 10^3/uL Normal 0-0.8 Abs Eosinophils 0.2 10^3/uL Normal 0-0.6 Abs Basophils 0.0 10^3/uL Normal 0-0.2 Abs Nucleated RBC 0.0 10^3/uL Granulocyte % 47.4 % Lymphocyte % 38.9 % Monocyte % 8.2 % Eosinophil % 4.9 % Basophil % 0.6 % Nucleated Red Blood Cells % 0.1 Comp Metabolic Panel 09/12/2019 [facility] Sodium 141 mmol/L Normal 135-145 [phone] Potassium 4.2 mmol/L Normal 3.5-5.0 Chloride 107 mmol/L Normal 101-111 Co2 Carbon Dioxide 29 mmol/L Normal 22-32 Anion Gap 5 mmol/L Normal 2-11 Glucose 77 mg/dL Normal 70-100 Blood Urea Nitrogen 12 mg/dL Normal 6-24 Creatinine 0.72 mg/dL Normal 0.51-0.95 BUN/Creatinine Ratio 16.7 Normal 8-20 Calcium 9.3 mg/dL Normal 8.6-10.3 Total Protein 6.7 g/dL Normal 6.4-8.9 Albumin 4.2 g/dL Normal 3.2-5.2 Globulin 2.5 g/dL Normal 2-4 Albumin/Globulin Ratio 1.7 Normal 1-3 Total Bilirubin 0.40 mg/dL Normal 0.2-1.0 Alkaline Phosphatase 45 U/L Normal 34-104 Alt 16 U/L Normal 7-52 Ast 16 U/L Normal 13-39 Egfr Non- 103.3 >60 Egfr 125.0 >60 1 Laboratory test 09/12/2019 [facility] TSH (Thyroid 0.41 mcIU/mL Normal 0.34-5.60 finding [phone] Stim Horm) Vitamin D Total 25(Oh) 17.6 ng/mL Low 20-50 2 Iron & Iron Binding Capacity 09/12/2019 [facility] Iron 83 g/dL Normal 50-212 [phone] Unsaturated Iron Binding < 415 g/dL Total Iron Binding Capacity 430 g/dL Normal 250-450 Transferrin 307 mg/dL Normal 203-362 % Iron Saturation 19 % Normal 15-55 Laboratory test finding 09/12/2019 [facility] Ferritin 8.2 ng/mL Low 11-307 [phone] Lyme Screen W/ Reflex To WB Negative Negative 3 GC/Chlamydia Amplified 09/12/2019 [facility] GCCHL Disclaimer (SEE NOTE ) 4 Rna [phone] Chlamydia trachomatis [place] Negative Negative Neisseria gonorrhoeae (GC) [place] Negative Negative 1 Because ethnic data is not always readily available, this report includes an eGFR for both -Americans and non- Americans. The National Kidney Disease Education Program (NKDEP) does not endorse the use of the MDRD equation for patients that are not between the ages of 18 and 70, are , have extremes of body size, muscle mass, or nutritional status, or are non- or non-. According to the National Kidney Foundation, irrespective of diagnosis, the stage of the disease is based on the level of kidney function: Stage Description GFR(mL/min/1.73 m(2)) 1 Kidney damage with normal or decreased GFR 90 2 Kidney damage with mild decrease in GFR 60-89 3 Moderate decrease in GFR 30-59 4 Severe decrease in GFR 15-29 5 Kidney failure <15 (or dialysis) 2 Total 25-Hydroxyvitamin D2 and D3 (25-OH-VitD) <10 ng/mL (severe deficiency) 10-19 ng/mL (mild to moderate deficiency) 20-50 ng/mL (optimum levels) 51-80 ng/mL (increased risk of hypercalciuria) >80 ng/mL (toxicity possible) 3 ADD LYMES TO [id number]. [id number] 4 As with all diagnostic procedures, the laboratory results obtained should be used in conjunction with other clinical information available to the physician, including confirmation by another method, as applicable. Procedures Description No Information Available Medical Devices Description No Information Available Encounters Type Date Location Provider Dx Diagnosis Office Visit 09/19/2019 Main Office Erma Birmingham MD R50.9 Fever, unspecified 11:30a G44.40 Drug-induced headache, NEC, not intractable D64.9 Anemia, unspecified Z72.820 Sleep deprivation Office Visit 09/12/2019 12:55p Main Office Erma Birmingham R50.9 Fever, unspecified Z11.3 Encntr screen for infections w sexl mode of transmiss Z11.4 Encounter for screening for human immunodeficiency virus R23.3 Spontaneous ecchymoses Z68.21 Body mass index (BMI) 21.0-21.9, adult Assessments Date Code Description Provider 09/19/2019 R50.9 Fever, unspecified Erma Birmingham MD 09/19/2019 G44.40 Drug-induced headache, not elsewhere Erma Birmingham MD classified, not intractable 09/19/2019 D64.9 Anemia, unspecified Erma Birmingham MD 09/19/2019 Z72.820 Sleep deprivation Erma Birmingham MD 09/12/2019 R50.9 Fever, unspecified Erma Birmingham MD 09/12/2019 Z11.3 Encounter for screening for infections with a Erma Birmingham MD predominantly sexual mode of transmission 09/12/2019 Z11.4 Encounter for screening for human Erma Birmingham MD immunodeficiency virus [HIV] 09/12/2019 R23.3 Spontaneous ecchymoses Erma Birmingham MD 09/12/2019 Z68.21 Body mass index (BMI) 21.0-21.9, adult Erma Birmingham MD Plan of Treatment 09/19/2019 - Erma Birmingham, MDR50.9 Fever, unspecifiedFollow up:take prescribed iron daily with orange juice and food. try to sleep more. take 4000 to 5000 IU vitamin D3 (from the pharmacy) every day with food. Drink plenty of water. Do not take tylenol more than three times weekly. Please do your best, this is hard. keep headache diary and diary of fevers. f/u one month and sooner as needed. condoms to prevent pregancy till feeling better.G44.40 Drug-induced headache, not elsewhere classified, not fzttljlwopyO13.9 Anemia, unspecifiedNew Medication:Ferrous Gluconate 324(38 Fe) mg - 1 by mouth every dayComments:will consider repeating ferritin next nvwezI17.820 Sleep deprivationComments:Is only getting about 5 hours sleep nightly due to caring for young child. Emphasized the importancewith patient and her boyfriend of getting 8 hours sleep nightly, and ways they may accomplish this. They both verbalized understanding and agreement to try to arrange things so this can happen. Functional Status Description No Information Available Mental Status Description No Information Available Referrals Description No Information Available
--- OUTSIDE RECORDS SUMMARY | 2019-10-02 16:11 | XMS REPORT | Continuity of Care Document ---
:1999 External Reference #:[id number] Author Name Erma Birmingham MD Address [address] [place] [address] Problems Description No Information Available Social History Type Date Description Comments Sex Unknown Tobacco Use Start: Unknown Patient is a current smoker, smokes every day Smoking Status Reviewed: 09/12/19 Patient is a current smoker, smokes every day Allergies, Adverse Reactions, Alerts Active Allergies Reaction Severity Comments Date Penicillin 09/12/2019 Augmentin 09/12/2019 Medications Description No Active Medications Medications Administered in Office Medication SIG Qnty Indications Ordering Provider Date H1N1 Swine Flu Vaccine Unknown 08/25/2009 Injection Immunizations CPT Code Status Date Vaccine Lot # [id number] Given 01/14/2017 MMR Virus Immunization 69092 Given 03/17/2015 Menactra Menningitis Vaccine 40477 Given 03/17/2015 Hep A, Ped/Adolscent, 2 Dose 84450 Given 12/05/2014 flu mist - live influenza virus vaccine for intranasal use 07235 Given 08/29/2013 Influenza Virus Vaccine, Quadrivalent, Split, Preservative Free 16867 Given 08/29/2013 Hep A, Ped/Adolscent, 2 Dose 94959 Given 08/08/2012 flu mist - live influenza virus vaccine for intranasal use 57090 Given 08/04/2011 Flu, Split Virus 3Yrs 41975 Given 01/27/2011 Gardasil HPV vaccine 70064 Given 09/28/2010 Gardasil HPV vaccine 28625 Given 07/28/2010 Menactra Menningitis Vaccine 88186 Given 07/28/2010 Varicella (Chicken Pox) Immunization 84384 Given 07/28/2010 Flu, Split Virus 3Yrs 33084 Given 07/28/2010 Gardasil HPV vaccine 33678 Given 07/21/2009 Adacel or Boostrix, TDaP 86936 Given 07/21/2009 Flu, Split Virus 3Yrs 85080 Given 07/08/2008 Flu, Split Virus 3Yrs 07472 Given 08/15/2007 Flu, Split Virus 3Yrs 01721 Given 09/01/2006 Flu, Split Virus 3Yrs 55082 Given 11/05/2004 Flu, Split Virus 3Yrs 33261 Given 05/18/2004 Poliomyelitis Immunization 14175 Given 05/18/2004 MMR Virus Immunization 62911 Given 05/18/2004 Dtap Immunization (Tripedia) (Infanrix) 16965 Given 09/14/2000 DTaP Hib Immunization (Trihibit) 25193 Given 09/14/2000 Prevnar (Pneumococcal Conjugate) 08326 Given 06/27/2000 Prevnar (Pneumococcal Conjugate) 00208 Given 06/27/2000 MMR Virus Immunization 56326 Given 06/27/2000 Poliomyelitis Immunization 45541 Given 06/27/2000 Varicella (Chicken Pox) Immunization 06935 Given 02/22/2000 Hep B Immunization, Ped/Adolescent To 11 Yrs 48548 Given 1999 Dtap Immunization (Tripedia) (Infanrix) 95378 Given 1999 Hib - for booster (one dose) 69876 Given 1999 Hepb-Hib 09839 Given 1999 Poliomyelitis Immunization 75024 Given 1999 Dtap Immunization (Tripedia) (Infanrix) 26749 Given 1999 Hepb-Hib 60160 Given 1999 Poliomyelitis Immunization 75723 Given 1999 Dtap Immunization (Tripedia) (Infanrix) Vital Signs Date Vital Result Comment 09/12/2019 1:13pm BP Systolic 102 mmHg BP Diastolic 60 mmHg Height 65.5 inches 5'5.50" Weight 130.50 lb BMI (Body Mass Index) 21.4 kg/m2 Results Test Acquired Date Facility Test Result H/L Range Note Laboratory test 09/12/2019 In House Test negative finding Urine Procedures Description No Information Available Medical Devices Description No Information Available Encounters Description No Information Available Assessments Date Code Description Provider 09/12/2019 R50.9 Fever, unspecified Erma Birmingham MD 09/12/2019 Z11.3 Encounter for screening for infections with a Erma Birmingham MD predominantly sexual mode of transmission 09/12/2019 Z11.4 Encounter for screening for human Erma Birmingham MD immunodeficiency virus [HIV] 09/12/2019 Z68.21 Body mass index (BMI) 21.0-21.9, adult Erma Birmingham MD Plan of Treatment Future Appointment(s):09/19/2019 11:30 am - Erma Birmingham MD at [id number] - Erma Birmingham, MDR50.9 Fever, unspecifiedNew Labs:HIV 1&2 p24 Screen, Ordered: 09/12/19CBC Auto Diff, Ordered: 09/12/19Comp Metabolic Panel, Ordered: 09/12/19TSH (Thyroid Stim Horm), Ordered: 09/12/19Vitamin D Total 25(Oh ), Ordered: 09/12/19Follow up:f/u one weekZ11.3 Encounter for screening for infections with a predominantly sexual mode of pcdieuqrtkasD58.4 Encounter for screening for human immunodeficiency virus [HIV]Z68.21 Body mass index (BMI) 21.0-21.9, adult Functional Status Description No Information Available Mental Status Description No Information Available Referrals Description No Information Available
[2019-10-02 16:16] VITALS: BP 112/75
--- NOTE | 2019-10-02 16:35 | UC ---
Throat Pain/Nasal Royer HPI - HPI Summary HPI Summary: 19-year-old female with a sore throat starting today. She states her boyfriend was just diagnosed with strep throat today and put on antibiotics. She is presently . - History of Current Complaint Chief Complaint: UCGeneralIllness Stated Complaint: SORE THROAT Time Seen by Provider: 10/02/19 16:06 Hx Obtained From: Patient Hx Last Menstrual Period: Jul 30 2019 ?: Yes Onset/Duration: Gradual Onset Severity: Mild Pain Intensity: 5 Associated Signs & Symptoms: Positive: Negative - Allergies/Home Medications Allergies/Adverse Reactions: Allergies Allergy/AdvReac Type Severity Reaction Status Date / Time amoxicillin Allergy Hives Verified 10/02/19 16:18 clavulanic acid Allergy Hives Verified 10/02/19 16:18 Penicillins Allergy Hives Verified 10/02/19 16:18 Home Medications: Home Medications NK [No Home Medications Reported] 10/02/19 [History Confirmed 10/02/19] PMH/Surg Hx/FS Hx/Imm Hx Previously Healthy: Yes - Surgical History Surgical History: Yes Surgery Procedure, Year, and Place: pyloric stenosis surgery as an infant, appendectomy - Family History Known Family History: Positive: Hypertension Negative: Cardiac Disease, Diabetes - Social History Lives: With Family Alcohol Use: Rare Substance Use Type: None Substance Use Comment - Amount & Last Used: daily Smoking Status (MU): Light Every Day Tobacco Smoker Type: Cigarettes Amount Used/How Often: 1 PPD Have You Smoked in the Last Year: Yes - stopped in Household Exposure Type: Cigarettes - Immunization History Most Recent Influenza Vaccination: Declined Most Recent Pneumonia Vaccination: none Vaccination Up to Date: Yes Review of Systems All Other Systems Reviewed And Are Negative: Yes ENT: Positive: Sore Throat Is Patient Immunocompromised?: No Physical Exam Triage Information Reviewed: Yes Appearance: Well-Appearing, No Pain Distress, Well-Nourished Vital Signs: Initial Vital Signs Temp 98.9 F 10/02/19 16:11 Pulse 106 10/02/19 16:11 Resp 16 10/02/19 16:11 BP 112/75 10/02/19 16:11 Pulse Ox 98 10/02/19 16:11 Vital Signs Reviewed: Yes Eyes: Positive: Conjunctiva Clear ENT: Positive: Hearing grossly normal, Pharynx normal, TMs normal, Uvula midline Neck: Positive: Supple, Nontender, Enlarged Nodes @ - Mildly enlarged tonsillar lymph nodes bilaterally. Respiratory: Positive: Lungs clear, Normal breath sounds, No respiratory distress, No accessory muscle use Cardiovascular: Positive: RRR, No Murmur, Pulses Normal, Brisk Capillary Refill Musculoskeletal Exam: Normal Neurological Exam: Normal Psychological Exam: Normal Skin Exam: Normal Throat Pain/Nasal Course/Dx - Course Course Of Treatment: Rapid strep test negative At this point in time the patient does not have strep however I did advise her because of her exposure with her boyfriend that she should be rechecked if she has a continued sore throat in 3 or 4 days. Patient is agreeable to this plan of action. - Differential Dx/Diagnosis Provider Diagnosis: Pharyngitis Discharge ED - Sign-Out/Discharge Documenting (check all that apply): Patient Departure All imaging exams completed and their final reports reviewed: No Studies - Discharge Plan Condition: Good Disposition: HOME Patient Education Materials: Pharyngitis (ED) Referrals: Erma Birmingham MD [Primary Care Provider] - Additional Instructions: Increase fluids, warm saltwater gargles, throat lozenges, definite recheck if you have a continued sore throat in 3 or 4 days or he run a fever or any worsening symptoms. - Billing Disposition and Condition Condition: GOOD Disposition: Home
== END 2019-10-02 16:46 | disposition home or self-care (01) ==
LOC: UCEAST 16:03
DX: J02.9 Acute pharyngitis, unspecified (principal); F17.210 Nicotine dependence, cigarettes, uncomplicated
CPT/HCPCS: 87651; 99211; G0463

== ENCOUNTER 2019-10-03 13:30 | Emergency (ER) | payer OTHER ==
[2019-10-03 14:11] LABS: ABS Eosinophils 0.2 10^3/ul (0-0.6); ABS Lymphocytes 1.6 10^3/ul (1.0-4.8); ABS Monocytes 0.5 10^3/ul (0-0.8); ABS Neutrophils 2.7 10^3/ul (1.5-7.7); Eosinophil % 4.3 %; Hematocrit 36 % (35-47); Hemoglobin 12.3 g/dL (12.0-16.0); Lymphocyte % 31.8 %; Mean Corpuscular HGB Conc 34 g/dL (31-36); Mean Corpuscular Hemoglobin 31 pg (27-31); Mean Corpuscular Volume 92 fL (80-97); Mean Platelet Volume 8.2 fL (7.4-10.4); Nucleated Red Blood Cells % 0.1; Platelet Count 195 10^3/uL (150-450); Red Blood Count 3.95 10^6 /uL (3.70-4.87); Red Cell Distribution Width 17 % (10-15); White Blood Count 5.1 10^3/uL (3.5-10.8)
[2019-10-03 14:24] LABS: Albumin/Globulin Ratio 1.6 (1-3); BUN/Creatinine Ratio 15.1 (8-20); Calcium 9.3 mg/dL (8.6-10.3); EGFR Non-African American 101.6 (>60); Globulin 2.5 g/dL (2-4); Potassium 3.9 mmol/L (3.5-5.0); Total Bilirubin 0.2 mg/dL (0.2-1.0); Total Protein 6.5 g/dL (6.4-8.9)
[2019-10-03 14:30] LABS: HCG Pregnancy 978.93 mIU/mL
--- NOTE | 2019-10-03 16:54 | ED ---
- HPI Summary HPI Summary: 19 year old female believed to be at 9 weeks presents for a rule out ectopic. States she went to the clinic and they were not able to see intrauterine pregnancies so they sent her here. States she has been having intermittent crampy pain but has no abdominal pain now. She denies any nausea vomiting. No urinary symptoms. No vaginal bleeding. No abnormal vaginal discharge. She does have a history of a miscarriage. - History of Current Complaint Chief Complaint: EDVaginalBleeding Stated Complaint: POSS EPTOPTIC PREGNACY PER PT Time Seen by Provider: 10/03/19 16:49 Pain Intensity: 0 - Assessment Hx Now: No Hx : 3 SAB: 0 IEA: 0 Hx Hysterectomy: No - Additional Pertinent History Maternal Blood Type and Rh: A Positive - Allergies/Home Medications Allergies/Adverse Reactions: Allergies Allergy/AdvReac Type Severity Reaction Status Date / Time amoxicillin Allergy Hives Verified 10/02/19 16:18 clavulanic acid Allergy Hives Verified 10/02/19 16:18 Penicillins Allergy Hives Verified 10/02/19 16:18 PMH/Surg Hx/FS Hx/Imm Hx Endocrine/Hematology History: Denies: Hx Diabetes, Hx Thyroid Disease Cardiovascular History: Denies: Hx Hypertension Respiratory History: Denies: Hx Asthma, Hx Chronic Obstructive Pulmonary Disease (COPD) GI History: 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 Denies: Hx Ulcer History: Denies: Hx Renal Disease Psychiatric History: Reports: Hx Anxiety - on lexapro, Hx Depression, Hx Community Mental Health Tx Denies: Hx Attention Deficit Hyperactivity Disorder, Hx Eating Disorder, Hx Panic Disorder, Hx Post Traumatic Stress Disorder, Hx Inpatient Treatment, Hx Schizophrenia, Hx Bipolar Disorder, Hx Suicide Attempt, Hx of Violent Episodes Against Others, Hx Substance Abuse, Other Psychiatric Issues/Disorders - Surgical History Surgery Procedure, Year, and Place: pyloric stenosis surgery as an , appendectomy Infectious Disease History: No Infectious Disease History: Denies: Hx Clostridium Difficile, Hx Hepatitis, Hx Human Immunodeficiency Virus (HIV), Hx of Known/Suspected MRSA, Hx Shingles, Hx Tuberculosis, Hx Known/ Suspected VRE, Hx Known/Suspected VRSA, History Other Infectious Disease, Traveled Outside the [place] in Last 30 Days - Family History Known Family History: Positive: Hypertension Negative: Cardiac Disease, Diabetes - Social History Alcohol Use: Rare Substance Use Type: Reports: None Substance Use Comment - Amount & Last Used: daily Smoking Status (MU): Light Every Day Tobacco Smoker Type: Cigarettes Amount Used/How Often: 1 PPD Have You Smoked in the Last Year: Yes - stopped in Review of Systems Negative: Fever Negative: Chest Pain Negative: Shortness Of Breath Negative: Abdominal Pain All Other Systems Reviewed And Are Negative: Yes Physical Exam - Physical Exam Triage Information Reviewed: Yes Vital Signs Reviewed: Yes Appearance: Positive: Well-Appearing Skin: Positive: Warm, Dry Head/Face: Positive: Normal Head/Face Inspection Eyes: Positive: Normal, Conjunctiva Clear ENT: Positive: Pharynx normal Respiratory/Lung Sounds: Positive: Clear to Auscultation, Breath Sounds Present Cardiovascular: Positive: Normal, RRR Abdomen Description: Positive: Nontender, Soft Bowel Sounds: Positive: Present Musculoskeletal: Positive: Normal Neurological: Positive: Normal Psychiatric: Positive: Normal Procedures - Sedation Patient Received Moderate/Deep Sedation with Procedure: No Diagnostics - Vital Signs Vital Signs Temp Pulse Resp BP Pulse Ox 10/03/19 16:26 98.5 F 98 18 124/69 99 10/03/19 13:38 99.3 F 99 18 128/81 99 - Laboratory Lab Results: Lab Results 10/03/19 10/03/19 10/03/19 Range/Units 13:50 13:50 13:50 WBC 5.1 (3.5-10.8) 10^3/uL RBC 3.95 (3.70-4.87) 10^6 /uL Hgb 12.3 (12.0-16.0) g/dL Hct 36 (35-47) % MCV 92 (80-97) fL MCH 31 (27-31) pg MCHC 34 (31-36) g/dL RDW 17 H (10-15) % Plt Count 195 (150-450) 10^3/uL MPV 8.2 (7.4-10.4) fL Neut % (Auto) 52.9 % Lymph % (Auto) 31.8 % [place] % (Auto) 10.7 % Eos % (Auto) 4.3 % Baso % (Auto) 0.3 % Absolute Neuts (auto) 2.7 (1.5-7.7) 10^3/ul Absolute Lymphs (auto) 1.6 (1.0-4.8) 10^3/ul Absolute Monos (auto) 0.5 (0-0.8) 10^3/ul Absolute Eos (auto) 0.2 (0-0.6) 10^3/ul Absolute Basos (auto) 0.0 (0-0.2) 10^3/ul Absolute Nucleated RBC 0.0 10^3/ul Nucleated RBC % 0.1 Sodium 139 (135-145) mmol/L Potassium 3.9 (3.5-5.0) mmol/L Chloride 107 (101-111) mmol/L Carbon Dioxide 27 (22-32) mmol/L Anion Gap 5 (2-11) mmol/L BUN 11 (6-24) mg/dL Creatinine 0.73 (0.51-0.95) mg/dL Est GFR ( Amer) 123.0 (>60) Est GFR (Non-Af Amer) 101.6 (>60) BUN/Creatinine Ratio 15.1 (8-20) Glucose 93 (70-100) mg/dL Calcium 9.3 (8.6-10.3) mg/dL Total Bilirubin 0.20 (0.2-1.0) mg/dL AST 18 (13-39) U/L ALT 20 (7-52) U/L Alkaline Phosphatase 41 (34-104) U/L Total Protein 6.5 (6.4-8.9) g/dL Albumin 4.0 (3.2-5.2) g/dL Globulin 2.5 (2-4) g/dL Albumin/Globulin Ratio 1.6 (1-3) Beta HCG, Quant 978.93 mIU/mL Blood Type A Positive Antibody Screen Negative Result Diagrams: 10/03/19 13:50 10/03/19 13:50 Lab Statement: Any lab studies that have been ordered have been reviewed, and results considered in the medical decision making process. - Ultrasound No standard instances Ultrasound Interpretation Completed By: Radiologist Summary of Ultrasound Findings: IMPRESSION: SMALL AMOUNT OF FLUID WITHIN THE ENDOMETRIAL CAVITY. THIS MAY REPRESENT A SMALL GESTATIONAL SAC VERSUS A DECIDUAL REACTION. THE AGE BY SAC DIAMETER IS 4 WEEKS AND 5 DAYS WHICH IS DISCORDANT WITH THE AGE BY DATES. THE DIFFERENTIAL INCLUDES EARLY INTRAUTERINE GESTATION OR ECTOPIC . RECOMMEND CORRELATION WITH SERIAL FOLLOW-UP IMAGING AND BETA HCG LEVELS. Course/Dx - Course Course Of Treatment: 19 year old female believed to be at 9 weeks presents for a rule out ectopic. States she went to the clinic and they were not able to see intrauterine pregnancies so they sent her here. States she has been having intermittent crampy pain but has no abdominal pain now. She denies any nausea vomiting. No urinary symptoms. No vaginal bleeding. No abnormal vaginal discharge. She does have a history of a miscarriage. On exam nontender abdomen. Appears comfortable. HCG is 978. Ultrasound shows potential sac in the uterus but is for unclear if this isectopic versus intrauterine. recommended serial ultrasounds and hCG levels. At that this time patient is comfortable may be just an early . We will have follow-up with OB. told if develop abdominal pain to return. Patient understands and agrees the plan. - Differential Diagnosis/HQI/PQRI: Ectopic , Intrauterine - Diagnoses Provider Diagnoses: Discharge ED - Sign-Out/Discharge Documenting (check all that apply): Patient Departure - Discharge Plan Condition: Good Disposition: HOME Referrals: Erma Birmingham MD [Primary Care Provider] - Additional Instructions: unclear where the fetus is on ultrasound at this point You need to contact your ob tomorrow to tell them that need several ultrasounds and hcg level to follow the Return to ED if develop severe abdominal pain or any new or worsening symptoms - Billing Disposition and Condition Condition: GOOD Disposition: Home - Attestation Statements Provider Attestation: I was available for consultation for this patient. I did not evaluate the patient or participate in any medical decision making or disposition decisions unless I am specifically named in the chart as having consulted on the patient. If I have consulted on the patient, please see my own ED note on the patient encounter. Kris Grimm MD
[2019-10-03 17:03] VITALS: BP 114/59
== END 2019-10-03 17:01 | disposition home or self-care (01) ==
LOC: ED 13:30
DX: O99.341 Other mental disorders complicating pregnancy, first trimester (principal); F41.9 Anxiety disorder, unspecified; F32.9 Major depressive disorder, single episode, unspecified; O99.331 Smoking (tobacco) complicating pregnancy, first trimester; F17.210 Nicotine dependence, cigarettes, uncomplicated; Z3A.01 Less than 8 weeks gestation of pregnancy; Z79.899 Other long term (current) drug therapy; Z88.0 Allergy status to penicillin; Z88.1 Allergy status to other antibiotic agents
CPT/HCPCS: 36415; 76817; 80053; 84702; 85025; 86850; 86900; 86901; 99282

== ENCOUNTER 2019-12-11 22:47 | Emergency (ER) | payer OTHER ==
[2019-12-11 23:26] LABS: Urine Appearance Cloudy; Urine Bilirubin Negative (Negative); Urine Blood Negative (Negative); Urine Color Yellow; Urine Glucose Negative (Negative); Urine Ketones Negative (Negative); Urine Nitrite Negative (Negative); Urine Protein Negative (Negative); Urine Specific Gravity 1.026 (1.010-1.030); Urine Urobilinogen Negative (Negative)
[2019-12-11 23:28] LABS: Urine Bacteria 1+ (Absent); Urine Red Blood Cell Absent (Absent); Urine Squamous Epithelial Cell Present (Absent); Urine White Blood Cell 2+(11-20/hpf) (Absent)
[2019-12-11] MEDS ORDERED: Nitrofurantoin Macrocrystals* 100 MG CAP PO ONE (23:35)
--- NOTE | 2019-12-11 23:53 | ED ---
GI/ HPI - HPI Summary HPI Summary: 19-year-old who is 14 weeks gestation female presents to the emergency department today with a chief complaint of burning with urination, increased frequency and fevers. Patient states she suffers from chronic UTIs and believes she has one today. Patient states she has taken Tylenol prior to arrival for fever. Patient is otherwise well and denies cough, nasal congestion , chest pain, abdominal pain, rash, nausea, vomiting, diarrhea, exposure to those of influenza or COVID. Patient states she has not taken antibiotics in the last 30 days. - History of Current Complaint Chief Complaint: EDFluSymptoms Time Seen by Provider: 12/11/19 22:53 Stated Complaint: 14 WKS PREG/FEVER/SOB PER PT Hx Obtained From: Patient Hx Last Menstrual Period: Jul 30 2019 Onset/Duration: Started Days Ago Timing: Constant Severity: Mild Current Severity: Mild Pain Intensity: 0 Location of Pain: Suprapubic Pain Characteristics: Burning, Pressure Associated Signs and Symptoms: Positive: Dysuria. Negative: Fever - Allergy/Home Medications Allergies/Adverse Reactions: Allergies Allergy/AdvReac Type Severity Reaction Status Date / Time amoxicillin Allergy Hives Verified 12/11/19 22:52 clavulanic acid Allergy Hives Verified 12/11/19 22:52 Penicillins Allergy Hives Verified 12/11/19 22:52 Home Medications: Home Medications Nitrofurantoin Monohyd/M-Cryst [Macrobid 100 mg Capsule] 100 mg PO BID #14 cap 12/11/19 [Rx] PMH/Surg Hx/FS Hx/Imm Hx Endocrine/Hematology History: Denies: Hx Diabetes, Hx Thyroid Disease Cardiovascular History: Denies: Hx Hypertension Respiratory History: Denies: Hx Asthma, Hx Chronic Obstructive Pulmonary Disease (COPD) GI History: 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 Denies: Hx Ulcer History: Denies: Hx Renal Disease Psychiatric History: Reports: Hx Anxiety - on lexapro, Hx Depression, Hx Community Mental Health Tx Denies: Hx Attention Deficit Hyperactivity Disorder, Hx Eating Disorder, Hx Panic Disorder, Hx Post Traumatic Stress Disorder, Hx Inpatient Treatment, Hx Schizophrenia, Hx Bipolar Disorder, Hx Suicide Attempt, Hx of Violent Episodes Against Others, Hx Substance Abuse, Other Psychiatric Issues/Disorders - Surgical History Surgery Procedure, Year, and Place: pyloric stenosis surgery as an infant, appendectomy Infectious Disease History: No Infectious Disease History: Denies: Hx Clostridium Difficile, Hx Hepatitis, Hx Human Immunodeficiency Virus (HIV), Hx of Known/Suspected MRSA, Hx Shingles, Hx Tuberculosis, Hx Known/ Suspected VRE, Hx Known/Suspected VRSA, History Other Infectious Disease, Traveled Outside the [place] in Last 30 Days - Family History Known Family History: Positive: Hypertension Negative: Cardiac Disease, Diabetes - Social History Alcohol Use: Rare Substance Use Type: Reports: None Substance Use Comment - Amount & Last Used: daily Smoking Status (MU): Light Every Day Tobacco Smoker Type: Cigarettes Amount Used/How Often: 1 PPD Have You Smoked in the Last Year: Yes - stopped in Review of Systems Constitutional: Negative Eyes: Negative ENT: Negative Cardiovascular: Negative Respiratory: Negative Gastrointestinal: Negative Positive: burning, dysuria, pain Musculoskeletal: Negative Skin: Negative Neurological/Mental Status: Negative Psychological: Normal All Other Systems Reviewed And Are Negative: Yes Physical Exam - Summary Physical Exam Summary: Patient has pain with palpation of the suprapubic area. Patient has no CVA tenderness. Abdomen is otherwise nontender and benign. Triage Information Reviewed: Yes Vital Signs On Initial Exam: Initial Vitals Temp Pulse Resp BP Pulse Ox 98.9 F 98 14 116/74 98 12/11/19 22:52 12/11/19 22:52 12/11/19 22:52 12/11/19 22:52 12/11/19 22:52 Vital Signs Reviewed: Yes Appearance: Positive: Well-Appearing, No Pain Distress, Well-Nourished Skin: Positive: Warm, Skin Color Reflects Adequate Perfusion Eyes: Positive: EOMI, OLIVER ENT: Positive: Hearing grossly normal Respiratory/Lung Sounds: Positive: Clear to Auscultation, Breath Sounds Present Cardiovascular: Positive: RRR, S1, S2 Abdomen Description: Positive: Nontender, Soft Bowel Sounds: Positive: Present Musculoskeletal: Positive: Strength/ROM Intact Neurological: Positive: Sensory/Motor Intact, Alert, Oriented to Person Place, Time, Normal Gait, Facial Symmetry, Speech Normal Psychiatric: Positive: Normal, Affect/Mood Appropriate AVPU Assessment: Alert Procedures - Sedation Patient Received Moderate/Deep Sedation with Procedure: No Diagnostics - Vital Signs Vital Signs Temp Pulse Resp BP Pulse Ox 12/11/19 22:52 98.9 F 98 14 116/74 98 - Laboratory Lab Results: Lab Results 12/11/19 12/11/19 Range/Units 23:05 23:05 Urine Color Yellow Urine Appearance Cloudy Urine pH 5.0 (5-9) Ur Specific [place] 1.026 (1.010-1.030) Urine Protein Negative (Negative) Urine Ketones Negative (Negative) Urine Blood Negative (Negative) Urine Nitrate Negative (Negative) Urine Bilirubin Negative (Negative) Urine Urobilinogen Negative (Negative) Ur Leukocyte Esterase 1+ A (Negative) Urine WBC (Auto) 2+(11-20/hpf) A (Absent) Urine RBC (Auto) Absent (Absent) Ur Squamous Epith Cells Present A (Absent) Urine Bacteria 1+ A (Absent) Urine Yeast Present A (Absent) Urine Glucose Negative (Negative) C.trachomatis (Amp Det) Pending N.gonorrhoeae (Amp Det) Pending Lab Statement: Any lab studies that have been ordered have been reviewed, and results considered in the medical decision making process. GIGU Course/Dx - Course Course Of Treatment: Patient was evaluated emergency department today for possible UTI. Vitals noted and stable. Patient is afebrile. Urinalysis returned contaminated however patient is symptomatic with dysuria and burning with 1+ leukocyte esterase and 2+ white blood cells. Patient was given 1 dose of Macrodantin in the emergency department for UTI. Gonorrhea and chlamydia testing was sent for analysis treated patient will be contacted with these results if positive. Patient discharged with outpatient follow-up with [facility]. There is no CVA tenderness or evidence of pyelonephritis or complicated cystitis. - Diagnoses Differential Diagnoses - Female: Pyelonephritis, Urinary Tract Infection Provider Diagnoses: Cystitis Discharge ED - Sign-Out/Discharge Documenting (check all that apply): Patient Departure - Discharge Plan Condition: Stable Disposition: HOME Prescriptions: Nitrofurantoin Monohyd/M-Cryst [Macrobid 100 mg Capsule] 100 mg PO BID #14 cap Patient Education Materials: Urinary Tract Infection in (ED) Referrals: Erma Birmingham MD [Primary Care Provider] - 3 Days Additional Instructions: Please take Macrobid twice daily for 7 days. Please take Tylenol as needed for fever and pain. Please follow-up with your [facility] or here PCP in 3-4 days for further evaluation and management. Please return to this emergency Department immediately if you develop any new or worsening symptoms such as significant fever or back pain with vomiting. - Billing Disposition and Condition Condition: STABLE Disposition: Home
[2019-12-12 00:30] VITALS: BP 117/79
[2019-12-12 12:12] LABS: Chlamydia trachomatis NAA Negative (Negative); Neisseria gonorrhoeae (GC) NAA Negative (Negative)
--- NOTE | 2019-12-14 08:45 | ED ---
Imaging and Labs Follow Up Follow Up Type: Labs/Cultures Labs/Culture Result: Urine culture final grew Escherichia coli 75-100,000 Patient Communication/Plan: Patient was placed on Macrobid prior to discharge Patient Communication/Plan: Macrobid is sensitive to this organism and nothing further was required Provider Diagnoses: Cystitis
== END 2019-12-11 23:57 | disposition home or self-care (01) ==
LOC: ED 22:47
DX: O23.11 Infections of bladder in pregnancy, first trimester (principal); Z3A.14 14 weeks gestation of pregnancy; Z87.440 Personal history of urinary (tract) infections; F41.9 Anxiety disorder, unspecified; Z79.899 Other long term (current) drug therapy; Z88.1 Allergy status to other antibiotic agents; Z88.0 Allergy status to penicillin; Z87.891 Personal history of nicotine dependence
CPT/HCPCS: 81003; 81015; 87077; 87086; 87186; 87491; 87591; 99282; A9270-GY

== ENCOUNTER 2020-05-31 08:00 | Inpatient (IN) ==
[2020-06-02] MEDS ORDERED: Oxytocin in LR 20 UNITS/1,000 ML BAG IVPB SCH ×2 (09:00→16:00)
[2020-06-02] MEDS: Lactated Ringers 1000 ml BAG 1,000 ML IV SCH ×2 (09:45→11:00)
[2020-06-02] MEDS ORDERED: Lactated Ringers 1000 ml BAG 1,000 ML IV SCH ×2 (10:00→16:00)
[2020-06-02 10:11] LABS: ABS Eosinophils 0.2 10^3/ul (0-0.6); ABS Lymphocytes 2.3 10^3/ul (1.0-4.8); ABS Monocytes 0.9 10^3/ul (0-0.8); ABS Neutrophils 9.2 10^3/ul (1.5-7.7); Eosinophil % 1.3 %; Hematocrit 34 % (35-47); Hemoglobin 11.8 g/dL (12.0-16.0); Lymphocyte % 18.4 %; Mean Corpuscular HGB Conc 35 g/dL (31-36); Mean Corpuscular Hemoglobin 34 pg (27-31); Mean Corpuscular Volume 98 fL (80-97); Mean Platelet Volume 8.2 fL (7.4-10.4); Platelet Count 280 10^3/uL (150-450); Red Blood Count 3.45 10^6 /uL (3.70-4.87); Red Cell Distribution Width 13 % (10-15); White Blood Count 12.7 10^3/uL (3.5-10.8)
[2020-06-02 10:27] LABS: Urine Benzodiazepine Screen None Detected (None Detect); Urine Cannabinoids Screen None Detected (None Detect); Urine Opiates Screen None Detected (None Detect)
[2020-06-02] MEDS ORDERED: fentaNYL 100 mcg/2 ml 50 MCG/ML VIAL IV SLOW PU ONE ×2 (12:19→14:36)
[2020-06-02] MEDS ORDERED: Glycerin ADULT 2.4 gm SUPP PR PRN (15:05)
[2020-06-02] MEDS ORDERED: Dibucaine 1% OINT 28.35 GM TUBE PR PRN (15:05)
[2020-06-02] MEDS ORDERED: Witch Hazel PAD JAR TOPICAL PRN (15:05)
[2020-06-02] MEDS: Nicotine GUM 2MG FRUIT FLAVOR PO PRN (17:26)
[2020-06-03] MEDS: Nicotine GUM 2MG FRUIT FLAVOR PO PRN ×4 (01:58→14:02)
[2020-06-03 08:15] LABS: ABS Basophils 0.1 10^3/ul (0-0.2); ABS Eosinophils 0.2 10^3/ul (0-0.6); ABS Lymphocytes 2.5 10^3/ul (1.0-4.8); ABS Monocytes 1.5 10^3/ul (0-0.8); ABS Neutrophils 9.6 10^3/ul (1.5-7.7); Eosinophil % 1.5 %; Hematocrit 31 % (35-47); Hemoglobin 10.6 g/dL (12.0-16.0); Lymphocyte % 18.1 %; Mean Corpuscular HGB Conc 34 g/dL (31-36); Mean Corpuscular Hemoglobin 33 pg (27-31); Mean Corpuscular Volume 99 fL (80-97); Mean Platelet Volume 8.1 fL (7.4-10.4); Platelet Count 244 10^3/uL (150-450); Red Blood Count 3.19 10^6 /uL (3.70-4.87); Red Cell Distribution Width 13 % (10-15); White Blood Count 13.8 10^3/uL (3.5-10.8)
[2020-06-03 11:58] VITALS: BP 109/59
== END 2020-06-03 15:53 | disposition home or self-care (01) ==
LOC: MCHOBOUT 06-02 08:16 → MCHOB 06-02 08:39
PROVIDERS: ADMIT Midwife; ATTEND Midwife

== ENCOUNTER 2022-03-30 12:12 | Inpatient (IN) ==
[2022-03-30] MEDS ORDERED: Lactated Ringers 1000 ml BAG 1,000 ML IV ONE ×2 (13:06→21:31)
[2022-03-30] MEDS ORDERED: Buffered Lidocaine 1% SYRIN 1 ml INTRADERM ONE (13:06)
[2022-03-30 13:49] LABS: ABS Eosinophils 0.1 10^3/ul (0-0.6); ABS Lymphocytes 1.5 10^3/ul (1.0-4.8); ABS Monocytes 0.4 10^3/ul (0-0.8); ABS Neutrophils 5.2 10^3/ul (1.5-7.7); Eosinophil % 0.8 %; Hematocrit 32 % (35-47); Hemoglobin 10.5 g/dL (12.0-16.0); Lymphocyte % 20.8 %; Mean Corpuscular HGB Conc 33 g/dL (31-36); Mean Corpuscular Hemoglobin 29 pg (27-31); Mean Corpuscular Volume 89 fL (80-97); Mean Platelet Volume 9.4 fL (7.4-10.4); Platelet Count 199 10^3/uL (150-450); Red Blood Count 3.64 10^6 /uL (3.70-4.87); Red Cell Distribution Width 14 % (10-15); White Blood Count 7.2 10^3/uL (3.5-10.8)
[2022-03-30] MEDS ORDERED: Oxytocin in LR 20 UNITS/1,000 ML BAG IVPB ONE (13:51)
[2022-03-30] MEDS ORDERED: Lactated Ringers 1000 ml BAG 1,000 ML IV SCH ×3 (14:00→23:45)
[2022-03-30 14:55] LABS: Urine Benzodiazepine Screen None Detected (None Detect); Urine Cannabinoids Screen None Detected (None Detect); Urine Opiates Screen None Detected (None Detect)
[2022-03-30] MEDS ORDERED: OBEPIDURAL (200 ML) 200 ML EPIDURAL ONE (20:50)
[2022-03-30] MEDS ORDERED: Phenylephrine 40 mcg/mL 10mL (400mcg) SYRINGE IV PUSH PRN ×2 (21:31)
[2022-03-30] MEDS ORDERED: Sodium Citrate/Citric Acid LIQ 15 ML UDC PO PRN (21:31)
[2022-03-30] MEDS ORDERED: OBEPIDURAL (200 ML) 200 ML EPIDURAL SCH (22:00)
[2022-03-30] MEDS ORDERED: Dibucaine 1% OINT 28.35 GM TUBE PR PRN (23:19)
[2022-03-30] MEDS ORDERED: Glycerin ADULT 2.4 gm SUPP PR PRN (23:19)
[2022-03-30] MEDS ORDERED: Witch Hazel PAD JAR TOPICAL PRN (23:19)
[2022-03-30] MEDS ORDERED: Oxytocin in LR 20 UNITS/1,000 ML BAG IVPB SCH (23:45)
[2022-03-31] MEDS ORDERED: Varicella Virus Vaccine Live 0.5 ML VIAL SUBCUT ONE
[2022-03-31 02:34] LABS: Urine Appearance Clear; Urine Bilirubin Negative (Negative); Urine Blood Negative (Negative); Urine Color Yellow; Urine Glucose Negative (Negative); Urine Ketones Negative (Negative); Urine Nitrite Negative (Negative); Urine Protein Negative (Negative); Urine Urobilinogen 0.2 (Negative) (Negative)
[2022-03-31 05:57] LABS: ABS Eosinophils 0.1 10^3/ul (0-0.6); ABS Lymphocytes 2.4 10^3/ul (1.0-4.8); ABS Monocytes 0.8 10^3/ul (0-0.8); ABS Neutrophils 7.7 10^3/ul (1.5-7.7); Eosinophil % 0.7 %; Hematocrit 26 % (35-47); Hemoglobin 8.4 g/dL (12.0-16.0); Lymphocyte % 22.1 %; Mean Corpuscular HGB Conc 32 g/dL (31-36); Mean Corpuscular Hemoglobin 29 pg (27-31); Mean Corpuscular Volume 88 fL (80-97); Mean Platelet Volume 9.2 fL (7.4-10.4); Nucleated Red Blood Cells % 0.1; Platelet Count 165 10^3/uL (150-450); Red Blood Count 2.95 10^6 /uL (3.70-4.87); Red Cell Distribution Width 14 % (10-15)
[2022-04-01 08:08] VITALS: BP 115/58
== END 2022-04-01 12:03 | disposition home or self-care (01) | DRG 560 ==
LOC: MCHOBOUT 12:12 → MCHOB 12:39
PROVIDERS: ADMIT Midwife; ATTEND Midwife